=== PATIENT | female | born 1995 | race African-American/Black ===

== ENCOUNTER 2017-07-11 11:25 | Emergency (ER) | payer MEDICAID ==
[~2017-07-11] VITALS: Ht 167.6 cm; Wt 90.0 kg
[2017-07-11 11:26] VITALS: BP 133/77; PULSE 87; RESP 12; TEMP 98.4; O2SAT 100
[2017-07-11 12:19] LABS: BACTERIA, URINE OCC /hpf; BLOOD, URINE TRACE (NEG); GLUCOSE,URINE NEG (NEG); KETONE, URINE NEG (NEG); NITRITE,URINE NEG (NEG); SQUAMOUS EPITHELIAL CELL URINE 2 /hpf (0-5); URINE COLOR LIGHT-YELLOW (YELLW/STRAW)
[2017-07-11 12:21] LABS: COMMENT (UR) CULT NOT INDICATED; CULTURE IF INDICATED CULT NOT INDICATED
--- NOTE | 2017-07-11 12:29 | PD ---
HPI Chief Complaint: Complaint Time Seen by Provider: 12:21 Travel History International Travel<30 days: No Contact w/Intl Traveler<30days: No Traveled to known affect area: No History of Present Illness HPI 21-year-old female presents to emergency Department with complaint of blood in her urine 3-4 weeks. Denies dysuria, urgency. Reports urinary frequency. Reports occasional lower abdominal pain that has been on and off for the last 2 weeks. Denies abdominal pain at this time. Reports occasional headaches, but denies headache at this time. Denies fever, vomiting. Reports dark brown vaginal discharge and foul odor. Unknown exposure to STDs. Last menstrual period 2 weeks ago. Has taken ibuprofen for symptom management. Symptoms are mild in severity. No known allergies. Does not have an established primary care provider at this time. Has no other medical complaints. No other modifying factors or associated signs and symptoms. PFSH Past Medical History Medical History: Denies Significant Hx Tetanus Vaccination: < 5 Years ?: Not LMP: 06/26/17 Past Surgical History Other Surgery: Yes (left arm surgery ) Social History Alcohol Use: No Tobacco Use: No Substance Use: No Allergies-Medications (Allergen,Severity, Reaction): Coded Allergies: No Known Allergies (Unverified , 07/11/17) Reported Meds & Prescriptions Reported Meds & Active Scripts Active Flagyl (Metronidazole) 500 Mg Tab 500 Mg PO BID 7 Days Review of Systems Except as stated in HPI: all other systems reviewed are Neg Physical Exam Narrative GENERAL: Well-nourished, well-developed black female patient, in no acute distress; afebrile, nontoxic-appearing SKIN: Warm and dry. No rash. HEAD: Atraumatic. Normocephalic. EYES: Pupils equal and round. No scleral icterus. No injection or drainage. ENT: Mucosa pink and moist. NECK: Trachea midline. CARDIOVASCULAR: Regular rate and rhythm. No murmur appreciated. RESPIRATORY: No accessory muscle use. Clear to auscultation. Breath sounds equal bilaterally. GASTROINTESTINAL: Abdomen soft, non-tender, nondistended. No tenderness on palpation to the pelvic region. Hepatic and splenic margins not palpable. Bowel sounds are active 4 quadrants. Bladder nontender and nondistended. MUSCULOSKELETAL: No obvious deformities. No clubbing. No cyanosis. No edema. PELVIC: Exam done in the presence of a nurse. Speculum exam reveals edematous and erythematous cervix with light green/brown, mucopurulent, non-smelling discharge. Bimanual exam reveals no palpable masses or adnexa tenderness, no uterine tenderness. No cervical motion tenderness. BACK: No CVA tenderness. NEUROLOGICAL: Awake and alert. Oriented 3. No obvious cranial nerve deficits. Motor grossly within normal limits. Normal speech. Moves all extremities. 5/5 strength to all extremities. PSYCHIATRIC: Appropriate mood and affect; insight and judgment normal. Data Data Last Documented VS Vital Signs Date Time Temp Pulse Resp B/P (MAP) Pulse Ox O2 Delivery O2 Flow Rate FiO2 07/11/17 11:26 98.4 87 12 133/77 (95) 100 Orders Orders Urinalysis - C+S If Indicated (07/11/17 11:39) Ed Urine Pregnancytest Poc (07/11/17 11:39) Gc And Chlamydia Pcr (07/11/17 12:29) Wet Prep Profile (07/11/17 12:29) Azithromycin Powd Pack (Zithromax Powd P (07/11/17 13:00) Ceftriaxone Inj (Rocephin Inj) (07/11/17 13:00) Lidocaine 1% Inj (50 Ml) (Xylocaine 1% I (07/11/17 13:00) Labs Laboratory Tests Test 07/11/17 11:29 07/11/17 12:46 Urine Color LIGHT-YELLOW Urine Turbidity CLEAR Urine pH 5.0 Urine Specific [place] 1.014 Urine Protein NEG mg/dL Urine Glucose (UA) NEG mg/dL Urine Ketones NEG mg/dL Urine Occult Blood TRACE Urine Nitrite NEG Urine Bilirubin NEG Urine Urobilinogen LESS THAN 2.0 MG/DL Urine Leukocyte Esterase SMALL Urine RBC 1 /hpf Urine WBC 2 /hpf Urine Squamous Epithelial Cells 2 /hpf Urine Bacteria OCC /hpf Microscopic Urinalysis Comment CULT NOT INDICATED Clue Cells (Wet Prep) PRESENT Vaginal Trichomonas (Wet Prep) NONE SEEN Vaginal Yeast (Wet Prep) NONE SEEN Chlamydia trachomatis DNA (PCR) NOT DETECTED Neisseria gonorrhoeae DNA (PCR) NOT DETECTED MDM Medical Decision Making Medical Screen Exam Complete: Yes Emergency Medical Condition: Yes Medical Record Reviewed: Yes Differential Diagnosis UTI, hematuria, cystitis, chlamydia, gonorrhea, Trichomonas, dysmenorrhea Narrative Course 21-year-old female with vaginal discharge and odor. Reports occasional lower abdominal pain without current abdominal pain. Patient is afebrile and nontoxic appearing. Denies fever, vomiting. Urinalysis and UPT ordered in triage. Wet prep, chlamydia and gonorrhea ordered. 1230: UPT negative. Urinalysis without signs of infection. 1249: Pelvic exam concludes cervicitis and a light green/brownish mucopurulent discharge. Patient will be empirically treated with azithromycin and Rocephin. 1440: Positive for bacterial vaginosis. Negative Trichomonas and vaginal yeast. Chlamydia and gonorrhea pending. Instructed Patient follow-up with engine inspector. Instructed patient to follow up with primary care provider. Patient verbalizes understanding and agreement with treatment plan. Patient is medically cleared and stable for discharge. Discussed reasons to return to the emergency department. Patient agrees with treatment plan. The patients vital signs are stable and the patient is stable for outpatient follow-up and treatment. Patient discharged home, stable and in no acute distress. Diagnosis Primary Impression: Bacterial vaginosis Referrals: [facility] [employer] [facility] Primary Care Physician Patient Instructions: Bacterial Vaginosis (ED), General Instructions Additional Instructions: Antibiotics as prescribed Do not drink alcohol while taking the antibiotics Follow-up with engine inspector Follow-up with primary care provider Return to the emergency department immediately for worsening of symptoms Med/Other Pt SpecificInfo: Prescription(s) given Scripts Metronidazole (Flagyl) 500 Mg Tab 500 MG PO BID for Infection for 7 Days, #14 TAB 0 Refills Prov: Patsy Edwards 07/11/17 Disposition: 01 DISCHARGE HOME Condition: Stable Patsy Edwards Jul 11, 2017 12:29
[2017-07-11] MEDS ORDERED: cefTRIAXone 250 MG VIAL IM ONE (13:00)
[2017-07-11] MEDS ORDERED: AZITHROMYCIN PWD FOR SUSP 1 GM PACKET PO ONE (13:00)
[2017-07-11] MEDS ORDERED: LIDOCAINE HCL 1% 50 ML VIAL IM ONE (13:00)
[2017-07-11 14:42] LABS: CHLAMYDIA PCR NOT DETECTED (NOT DETECT); NEISSERIA PCR NOT DETECTED (NOT DETECT)
[2017-07-11] MEDS ORDERED: METR-1 PO (14:44)
== END 2017-07-11 15:06 | disposition home or self-care (01) ==
LOC: NEPD 11:25
DX: N76.0 Acute vaginitis (principal); B96.89 Other specified bacterial agents as the cause of diseases classified elsewhere
CPT/HCPCS: 81001; 84703; 87210; 87491; 87591; 96372; 99284; J0696